=== PATIENT | male | born 1960 | race Caucasian/White ===

== ENCOUNTER 2024-08-07 23:50 | Emergency (ER) | payer OTHER ==
[2024-08-08] MEDS: Metoprolol Tartrate 50 MG Tab PO ONE (00:29)
[2024-08-08] MEDS: Oxymetazoline 0.05% Nasal Spray 30 ML Bottle NAS ONE (01:46)
[2024-08-08] MEDS: LORazepam 0.5 MG Tab PO ONE (02:19)
[2024-08-08] MEDS: Acetaminophen 325 MG Tab PO ONE (02:20)
== END 2024-08-08 02:47 | disposition home or self-care (01) ==
LOC: JD.ED 23:50
DX: R04.0 Epistaxis (principal); I10 Essential (primary) hypertension; Z86.16 Personal history of COVID-19; Z79.899 Other long term (current) drug therapy
CPT/HCPCS: 99283; A9270; C9046; 30901